=== PATIENT | female | born 1975 | race Caucasian/White ===

== ENCOUNTER → 2017-11-08 | Outpatient (CLI) | payer SELFPAY ==
--- NOTE | 2017-11-08 16:58 | RADIOLOGY REPORT (SQ) ---
EXAM DESCRIPTION: CHEST PA/LATERAL COMPLETED DATE/TIME: 11/08/2017 3:31 pm REASON FOR STUDY: PLEURODYNIA COMPARISON: 05/12/2016. EXAM PARAMETERS: NUMBER OF VIEWS: two views TECHNIQUE: Digital Frontal and Lateral radiographic views of the chest acquired. RADIATION DOSE: NA LIMITATIONS: none FINDINGS: LUNGS AND PLEURA: No opacities, masses or pneumothorax. No pleural effusion. MEDIASTINUM AND HILAR STRUCTURES: No masses or contour abnormalities. HEART AND VASCULAR STRUCTURES: Heart normal size. No evidence for failure. BONES: No acute findings. HARDWARE: None in the chest. OTHER: No other significant finding. IMPRESSION: NO SIGNIFICANT RADIOGRAPHIC FINDING IN THE CHEST. TECHNICAL DOCUMENTATION: JOB ID: [id number] [employer]- All Rights Reserved
== END ==
LOC: OD 15:10
PROVIDERS: ATTEND Family Medicine
DX: R07.81 Pleurodynia (principal)
CPT/HCPCS: 71046

== ENCOUNTER 2017-11-13 17:37 | Emergency (ER) | payer SELFPAY ==
[2017-11-13] MEDS ORDERED: ASPIRIN 81 MG TABLET, CHEWABLE PO ONE (19:44)
--- NOTE | 2017-11-13 19:47 | ER Document Report ---
ED Medical Screen (RME) - General Chief Complaint: Shortness Of Breath Stated Complaint: SHORTNESS OF BREATH,WEAKNESS Time Seen by Provider: 11/13/17 19:44 Mode of Arrival: Ambulatory Information source: Patient Notes: Patient presents complaining of left-sided chest pain and left upper back pain for the past week. Patient reports she has had shortness of breath off and on that is persisted today. Patient states shortness of breath is worse with exertion. Patient reports cough off and on over the past several months. Patient denies any fever. Patient additionally reports bilateral flank pain that started today. Patient states that she did see her primary doctor and had an x-ray performed last week but does not know the results of that. hx: Anxiety, hypertension, migraines, fibromyalgia, partial hysterectomy, cholecystectomy I have greeted and performed a rapid initial assessment of this patient. A comprehensive ED assessment and evaluation of the patient, analysis of test results and completion of the medical decision making process will be conducted by additional ED providers. TRAVEL OUTSIDE OF THE [place] IN LAST 30 DAYS: No - Related Data Allergies/Adverse Reactions: lisinopril [Lisinopril] Allergy (Verified 11/13/17 17:39) ondansetron [From ZOFRAN ODT] Allergy (Verified 11/13/17 17:39) promethazine HCl [From Phenergan] Allergy (Verified 11/13/17 17:39) Past Medical History - Past Medical History Cardiac Medical History: Reports: Hx Hypertension - Not on medication Denies: Hx Coronary Artery Disease, Hx Heart Attack Pulmonary Medical History: Denies: Hx Asthma, Hx Bronchitis, Hx COPD, Hx Pneumonia Neurological Medical History: Denies: Hx Cerebrovascular Accident, Hx Seizures GI Medical History: Reports: Hx Gastroesophageal Reflux Disease Musculoskeltal Medical History: Denies Hx Arthritis, Reports Hx Fibromyalgia Psychiatric Medical History: Reports: Hx Anxiety, Hx Attention Deficit Hyperactivity Disorder, Hx Depression Past Surgical History: Reports: Hx Cholecystectomy - 1992, Hx Hysterectomy - 2010 - Immunizations Hx Diphtheria, Pertussis, Tetanus Vaccination: Yes Physical Exam - Vital signs Vitals: Temp Pulse Resp BP Pulse Ox 98.2 F 70 18 173/99 H 99 11/13/17 17:47 11/13/17 17:47 11/13/17 17:47 11/13/17 17:47 11/13/17 17:47 - Cardiovascular Rhythm: Regular Heart sounds: S1 appreciated, S2 appreciated Murmur: No - Back Back: CVA tenderness - Bilateral Course - Vital Signs Vital signs: Temp Pulse Resp BP Pulse Ox 98.2 F 70 18 173/99 H 99 11/13/17 17:47 11/13/17 17:47 11/13/17 17:47 11/13/17 17:47 11/13/17 17:47
[2017-11-13 20:27] LABS: ABSOLUTE BASOPHILS # (AUTO) 0.1 10^3/uL (0.0-0.2); ABSOLUTE LYMPHOCYTES (AUTO) 3.9 10^3/uL (0.5-4.7); ABSOLUTE MONOCYTES (AUTO) 0.7 10^3/uL (0.1-1.4); ABSOLUTE NEUT (AUTO) 7.1 10^3/uL (1.7-8.2); BASOPHILS % (AUTO) 0.7 % (0-2); EOSINOPHILS % (AUTO) 0.2 % (0-6); HEMOGLOBIN 12.8 g/dL (12.0-15.5); LYMPHOCYTES % (AUTO) 33.1 % (13-45); MEAN CORPUSCULAR HEMOGLOBIN 29.6 pg (27.0-33.4); MEAN CORPUSCULAR HGB CONC 33.7 g/dL (32.0-36.0); MEAN CORPUSCULAR VOLUME 88 fl (80-97); MONOCYTES % (AUTO) 5.9 % (3-13); PLATELET COUNT 348 10^3/uL (150-450); RED BLOOD COUNT 4.33 10^6/uL (3.72-5.28); RED CELL DISTRIBUTION WIDTH 13.9 % (11.5-14.0); SEGMENTED NEUTROPHILS % (AUTO) 60.1 % (42-78); TOTAL CELLS COUNTED % (AUTO) 100 %; WHITE BLOOD COUNT 11.8 10^3/uL (4.0-10.5)
--- NOTE | 2017-11-13 20:40 | RADIOLOGY REPORT (SQ) ---
EXAM DESCRIPTION: CHEST PA/LAT COMPLETED DATE/TIME: 11/13/2017 8:15 pm REASON FOR STUDY: cp, cough COMPARISON: 2015 TECHNIQUE: Frontal and lateral radiographic views of the chest acquired. NUMBER OF VIEWS: Two view. LIMITATIONS: None. FINDINGS: LUNGS AND PLEURA: No opacities, masses or pneumothorax. No pleural effusion. MEDIASTINUM AND HILAR STRUCTURES: No masses or contour abnormalities. HEART AND VASCULAR STRUCTURES: Heart normal size. No evidence for failure. BONES: No acute findings. HARDWARE: None in the chest. OTHER: No other significant finding. IMPRESSION: NO SIGNIFICANT RADIOGRAPHIC FINDING IN THE CHEST. TECHNICAL DOCUMENTATION: JOB ID: [id number] [employer]- All Rights Reserved
[2017-11-13 20:55] LABS: APPEARANCE,URINE SLIGHTLY-CLOUDY; BILIRUBIN,URINE NEGATIVE (NEGATIVE); COLOR,URINE YELLOW; GLUCOSE, URINE NEGATIVE (NEGATIVE); KETONES,URINE NEGATIVE (NEGATIVE); LEUKOCYTE ESTERASE,URINE NEGATIVE (NEGATIVE); NITRITE,URINE NEGATIVE (NEGATIVE); PROTEIN,URINE NEGATIVE (NEGATIVE); URINE SPECIFIC GRAVITY 1.018; UROBILINOGEN,URINE NEGATIVE mg/dL (<2.0)
[2017-11-13 21:19] LABS: ALANINE AMINOTRANSFERASE 39 U/L (9-52); ALBUMIN 4.9 g/dL (3.5-5.0); ALKALINE PHOSPHATASE 70 U/L (38-126); ANION GAP 10 (5-19); ASPARTATE AMINO TRANSFERASE 23 U/L (14-36); BILIRUBIN,DIRECT 0.4 mg/dL (0.0-0.4); BILIRUBIN,TOTAL 0.4 mg/dL (0.2-1.3); BLOOD UREA NITROGEN 15 mg/dL (7-20); CALCIUM 10.3 mg/dL (8.4-10.2); CARBON DIOXIDE 29 mmol/L (22-30); CHLORIDE 102 mmol/L (98-107); CREATINE KINASE 57 U/L (30-135); GLUCOSE 89 mg/dL (75-110); LIPASE 57.1 U/L (23-300); SODIUM 140.9 mmol/L (137-145); TOTAL PROTEIN 8.1 g/dL (6.3-8.2)
[2017-11-13 21:31] LABS: CREATINE KINASE MB 0.25 ng/mL (<4.55)
[2017-11-13 21:34] LABS: TROPONIN I < 0.012 ng/mL
[2017-11-13] MEDS ORDERED: LIDOCAINE 5% (700 MG) TRANSDERMAL ADH..PATCH TP ONE (22:26)
--- NOTE | 2017-11-13 22:27 | ER Document Report ---
ED General - General Chief Complaint: Shortness Of Breath Stated Complaint: SHORTNESS OF BREATH,WEAKNESS Time Seen by Provider: 11/13/17 19:44 Mode of Arrival: Ambulatory Notes: Patient is a 42-year-old female who presents with approximately 5-6 days of left -sided periscapular and chest wall pain. Patient states that this is a dull, aching, constant pain worsened by moving, breathing or coughing. She saw her primary care doctor for this concern, was diagnosed with musculoskeletal irritation and treated with Vicodin, prednisone and muscle relaxers without any relief. She denies history of similar symptoms in the past. She notes that sometimes the pain prevents her from getting a deep breath. She denies any baseline shortness of breath, syncope, hemoptysis, unilateral leg swelling or use of estrogen. No history of DVT or pulmonary embolus. TRAVEL OUTSIDE OF THE [place] IN LAST 30 DAYS: No - Related Data Allergies/Adverse Reactions: lisinopril [Lisinopril] Allergy (Verified 11/13/17 17:39) ondansetron [From ZOFRAN ODT] Allergy (Verified 11/13/17 17:39) promethazine HCl [From Phenergan] Allergy (Verified 11/13/17 17:39) Past Medical History - General Information source: Patient - Social History Smoking Status: Never Smoker Chew tobacco use (# tins/day): No Frequency of alcohol use: Occasional Drug Abuse: None Lives with: Spouse/Significant other Family History: CAD, Hyperlipidemia, Hypertension Patient has suicidal ideation: No Patient has homicidal ideation: No - Past Medical History Cardiac Medical History: Reports: Hx Hypertension - Not on medication Denies: Hx Coronary Artery Disease, Hx Heart Attack Pulmonary Medical History: Denies: Hx Asthma, Hx Bronchitis, Hx COPD, Hx Pneumonia Neurological Medical History: Denies: Hx Cerebrovascular Accident, Hx Seizures Renal/ Medical History: Denies: Hx Peritoneal Dialysis GI Medical History: Reports: Hx Gastroesophageal Reflux Disease Musculoskeltal Medical History: Denies Hx Arthritis, Reports Hx Fibromyalgia Psychiatric Medical History: Reports: Hx Anxiety, Hx Attention Deficit Hyperactivity Disorder, Hx Depression Past Surgical History: Reports: Hx Cholecystectomy - 1992, Hx Hysterectomy - 2010 - Immunizations Hx Diphtheria, Pertussis, Tetanus Vaccination: Yes Review of Systems - Review of Systems Notes: Constitutional: Negative for fever. HENT: Negative for sore throat. Eyes: Negative for visual changes. Cardiovascular: Negative for chest pain. Respiratory: Negative for shortness of breath. Gastrointestinal: Negative for abdominal pain, vomiting or diarrhea. Genitourinary: Negative for dysuria. Musculoskeletal: Positive for left-sided chest wall and periscapular pain. Skin: Negative for rash. Neurological: Negative for headaches, weakness or numbness. 10 point ROS negative except as marked above and in HPI. Physical Exam - Vital signs Vitals: Temp Pulse Resp BP Pulse Ox 98.2 F 70 18 173/99 H 99 11/13/17 17:47 11/13/17 17:47 11/13/17 17:47 11/13/17 17:47 11/13/17 17:47 Interpretation: Hypertensive Notes: PHYSICAL EXAMINATION: GENERAL: Well-appearing, well-nourished and in no acute distress. HEAD: Atraumatic, normocephalic. EYES: Pupils equal round and reactive to light, extraocular movements intact, sclera anicteric, conjunctiva are normal. ENT: nares patent, oropharynx clear without exudates. Moist mucous membranes. NECK: Normal range of motion, supple without lymphadenopathy LUNGS: Breath sounds clear to auscultation bilaterally and equal. No wheezes rales or rhonchi. HEART: Regular rate and rhythm without murmurs chest wall: Pain on palpation of the left periscapular and intercostal muscles. ABDOMEN: Soft, nontender, normoactive bowel sounds. No guarding, no rebound. No masses appreciated. EXTREMITIES: Normal range of motion, no pitting or edema. No cyanosis. NEUROLOGICAL: No focal neurological deficits. Moves all extremities spontaneously and on command. PSYCH: Normal mood, normal affect. SKIN: Warm, Dry, normal turgor, no rashes or lesions noted. Course - Re-evaluation Re-evalutation: 11/13/17 22:23 Patient presents with 2 weeks of a pain around her left periscapular region and lower ribs worsened by movement and breathing. She states that a deep breath occasionally makes it feel she cannot breathe due to the level of pain. Denies any history of similar symptoms in the past. She denies any hemoptysis, tachycardia, syncope, unilateral leg swelling, history of DVT or pulmonary embolus, any use of supplemental estrogen, or history of malignancy. She is PERC criteria negative. Her pain is reproducible on exam as well as with movement of the chest wall and I strongly suspect a musculoskeletal component as opposed to pulmonary embolus. Chest x-ray is clear without any evidence of a pneumothorax or widened mediastinum. Clinical history is not consistent with aortic dissection. EKG unremarkable without any ischemic changes and again her clinical history is not consistent with a cardiac origin of her presentation today. At this time will discharge with return precautions and follow-up recommendations. Verbal discharge instructions given a the bedside and opportunity for questions given. Medication warnings reviewed. Patient is in agreement with this plan and has verbalized understanding of return precautions and the need for primary care follow-up in the next 24-72 hours. - Vital Signs Vital signs: Temp Pulse Resp BP Pulse Ox 97.3 F 70 16 148/93 H 100 11/13/17 22:35 11/13/17 17:47 11/13/17 22:35 11/13/17 22:35 11/13/17 22:35 - Laboratory Result Diagrams: 11/13/17 20:15 11/13/17 20:15 Laboratory results interpreted by me: 11/13/17 11/13/17 20:15 20:15 WBC 11.8 H Calcium 10.3 H - Diagnostic Test Radiology reviewed: Image reviewed, Reports reviewed Radiology results interpreted by me: 11/13/17 22:25 Chest x-ray: No acute infiltrate or pneumothorax - EKG Interpretation by Me Additional EKG results interpreted by me: 11/13/17 22:25 Sinus bradycardia. Rate 56. No ST elevations or depressions. QTC is 448. Discharge - Discharge Clinical Impression: Chest discomfort, Periscapular pain, Pleurodynia Condition: Good Disposition: HOME, SELF-CARE Additional Instructions: Your symptoms appear to be most consistent with musculoskeletal irritation of your chest wall. This pain can last for up to 6 weeks. It is very important that you continue to take purposeful deep breaths. For your pain: Continue to take ibuprofen 600 mg every 6 hours or Tylenol 1000 mg every 6 hours. Apply local lidocaine to the area per bottle instructions. There is a product sold [id number] called "Aspercreme with lidocaine" that you can use for this purpose. Please follow-up with her primary care doctor in the next 2-3 days. Return to the emergency department immediately if you develop worsening shortness of breath, increased pain, begin coughing blood, pass out, or have any other symptoms that are worrisome to you. Referrals: JEREMIAH DUARTE, DO [Primary Care Provider] - Follow up as needed
[2017-11-13 22:38] VITALS: BP 148/93
--- NOTE | 2017-11-14 08:12 | EKG REPORT ---
SEVERITY:- NORMAL ECG - SINUS RHYTHM : Confirmed by: Jonathan Sidhu MD 14-Nov-2017 08:11:38
== END 2017-11-13 22:35 | disposition home or self-care (01) ==
LOC: ER 17:37
DX: R07.81 Pleurodynia (principal); R07.89 Other chest pain; R06.02 Shortness of breath; Z90.49 Acquired absence of other specified parts of digestive tract; Z90.710 Acquired absence of both cervix and uterus
CPT/HCPCS: 36415; 71046; 80053; 81001; 82550; 82553; 83690; 84484; 85025; 93005; 93010; 99285

== ENCOUNTER 2018-11-06 19:36 | Emergency (ER) | payer SELFPAY ==
--- NOTE | 2018-11-06 20:57 | ER Document Report ---
ED Medical Screen (RME) - General Chief Complaint: Chest Pain Stated Complaint: CHEST PAIN Time Seen by Provider: 11/06/18 20:34 Primary Care Provider: JEREMIAH DUARTE DO [Primary Care Provider] - Follow up as needed Notes: 43-year-old female patient complained of headache for the past 10 days that is worse today. Today she noticed some pain in the left ear going into the left jaw with associated left-sided chest pain. The chest pain seems to be made worse with taking a deep breath. She feels some of the headache and facial pain is sinus related. She also noted that her blood pressure was increased today. She does take propranolol 60 mg daily for blood pressure. She was started on phentermine hydrochloride on 10/19/2018, but states she stopped it 2 weeks ago because it was making her blood pressure go high. She was in urgent care today and while there took 1 of her 3 times daily Ativan but that did not help her chest pain go away. They recommended she come to the emergency room for further evaluation. I have greeted and performed a rapid initial assessment of this patient. A comprehensive ED assessment and evaluation of the patient, analysis of test results and completion of the medical decision making process will be conducted by additional ED providers. TRAVEL OUTSIDE OF THE [place] IN LAST 30 DAYS: No - Related Data Allergies/Adverse Reactions: lisinopril [Lisinopril] Allergy (Verified 11/06/18 20:39) ondansetron [From ZOFRAN ODT] Allergy (Verified 11/06/18 20:39) promethazine HCl [From Phenergan] Allergy (Verified 11/06/18 20:39) Past Medical History - Past Medical History Cardiac Medical History: Reports: Hx Hypertension Denies: Hx Coronary Artery Disease, Hx Heart Attack Pulmonary Medical History: Denies: Hx Asthma, Hx Bronchitis, Hx COPD, Hx Pneumonia Neurological Medical History: Denies: Hx Cerebrovascular Accident, Hx Seizures Renal/ Medical History: Denies: Hx Peritoneal Dialysis GI Medical History: Reports: Hx Gastroesophageal Reflux Disease, Hx Hiatal Hernia Musculoskeltal Medical History: Denies Hx Arthritis, Reports Hx Fibromyalgia Psychiatric Medical History: Reports: Hx Anxiety, Hx Attention Deficit Hyperactivity Disorder, Hx Depression - panic d/c, anxiety Past Surgical History: Reports: Hx Cholecystectomy, Hx Gynecologic Surgery, Hx Hysterectomy - Immunizations Hx Diphtheria, Pertussis, Tetanus Vaccination: Yes Physical Exam - Vital signs Vitals: Temp Pulse Resp BP Pulse Ox 98.2 F 76 20 154/88 H 100 11/06/18 19:59 11/06/18 19:59 11/06/18 19:59 11/06/18 19:59 11/06/18 19:59 Course - Vital Signs Vital signs: Temp Pulse Resp BP Pulse Ox 98.2 F 76 20 154/88 H 100 11/06/18 19:59 11/06/18 19:59 11/06/18 19:59 11/06/18 19:59 11/06/18 19:59 Doctor's Discharge - Discharge Referrals: JEREMIAH DUARTE DO [Primary Care Provider] - Follow up as needed
[2018-11-06 21:21] LABS: ABSOLUTE EOSINOPHILS # (AUTO) 0.1 10^3/uL (0.0-0.6); ABSOLUTE LYMPHOCYTES (AUTO) 2.5 10^3/uL (0.5-4.7); ABSOLUTE MONOCYTES (AUTO) 0.5 10^3/uL (0.1-1.4); ABSOLUTE NEUT (AUTO) 4.9 10^3/uL (1.7-8.2); BASOPHILS % (AUTO) 0.6 % (0-2); EOSINOPHILS % (AUTO) 0.7 % (0-6); HEMATOCRIT 39.9 % (36.0-47.0); HEMOGLOBIN 13.2 g/dL (12.0-15.5); LYMPHOCYTES % (AUTO) 31.1 % (13-45); MEAN CORPUSCULAR HEMOGLOBIN 29.5 pg (27.0-33.4); MEAN CORPUSCULAR VOLUME 90 fl (80-97); MONOCYTES % (AUTO) 6.2 % (3-13); PLATELET COUNT 317 10^3/uL (150-450); RED BLOOD COUNT 4.45 10^6/uL (3.72-5.28); SEGMENTED NEUTROPHILS % (AUTO) 61.4 % (42-78); TOTAL CELLS COUNTED % (AUTO) 100 %
[2018-11-06 21:24] LABS: APPEARANCE,URINE SLIGHTLY-CLOUDY; BILIRUBIN,URINE NEGATIVE (NEGATIVE); COLOR,URINE YELLOW; GLUCOSE, URINE NEGATIVE (NEGATIVE); KETONES,URINE NEGATIVE (NEGATIVE); LEUKOCYTE ESTERASE,URINE NEGATIVE (NEGATIVE); NITRITE,URINE NEGATIVE (NEGATIVE); PROTEIN,URINE NEGATIVE (NEGATIVE); URINE SPECIFIC GRAVITY 1.023; UROBILINOGEN,URINE NEGATIVE mg/dL (<2.0)
--- NOTE | 2018-11-06 21:33 | RADIOLOGY REPORT (SQ) ---
EXAM DESCRIPTION: XR CHEST 2 VIEWS COMPLETED DATE/TME: 11/06/2018 20:55 CLINICAL HISTORY: 43 years, Female, Chest pain COMPARISON: 11/13/2017 chest NUMBER OF VIEWS: 2 TECHNIQUE: Frontal and lateral views of the chest LIMITATIONS: None. FINDINGS: Heart size normal. Lungs are clear. No pneumothorax IMPRESSION: Negative chest copyright 2010 [employer]- All Rights Reserved
[2018-11-06 21:34] LABS: ALANINE AMINOTRANSFERASE 27 U/L (9-52); ALBUMIN 4.8 g/dL (3.5-5.0); ALKALINE PHOSPHATASE 79 U/L (38-126); ANION GAP 7 (5-19); ASPARTATE AMINO TRANSFERASE 22 U/L (14-36); BILIRUBIN,DIRECT 0.1 mg/dL (0.0-0.4); BILIRUBIN,TOTAL 0.3 mg/dL (0.2-1.3); BLOOD UREA NITROGEN 11 mg/dL (7-20); CALCIUM 9.5 mg/dL (8.4-10.2); CARBON DIOXIDE 29 mmol/L (22-30); CHLORIDE 103 mmol/L (98-107); CREATINE KINASE 83 U/L (30-135); GLUCOSE 121 mg/dL (75-110); POTASSIUM 3.9 mmol/L (3.6-5.0); SODIUM 139.1 mmol/L (137-145); TOTAL PROTEIN 7.6 g/dL (6.3-8.2)
[2018-11-06 21:47] LABS: TROPONIN I < 0.012 ng/mL
--- NOTE | 2018-11-06 22:16 | ER Document Report ---
ED Cardiac - General Chief Complaint: Chest Pain Stated Complaint: CHEST PAIN Time Seen by Provider: 11/06/18 22:16 Primary Care Provider: JEREMIAH DUARTE DO [Primary Care Provider] - Follow up as needed Information source: Patient Notes: Patient is a 43-year-old female with a past medical history of anxiety, GERD, and costochondritis who presents with left-sided headache as well as sharp left- sided chest pain. Patient denies recent fevers or chills, no vision changes, no confusion or disorientation, no shortness of breath, no inability walking, no head injuries. Patient does describe pain as sharp in sensation and consistent with known history of costochondritis. Onset: 3-4 hours prior to arrival Provocation: None Quality: Sharp, throbbing Radiation: None Severity: Moderate Timing: Constant TRAVEL OUTSIDE OF THE [place] IN LAST 30 DAYS: No - HPI Similar symptoms previously: Yes Recently seen / treated by doctor: No - Related Data Allergies/Adverse Reactions: lisinopril [Lisinopril] Allergy (Verified 11/06/18 20:39) ondansetron [From ZOFRAN ODT] Allergy (Verified 11/06/18 20:39) promethazine HCl [From Phenergan] Allergy (Verified 11/06/18 20:39) Past Medical History - General Information source: Patient - Social History Smoking Status: Never Smoker Chew tobacco use (# tins/day): No Frequency of alcohol use: None Drug Abuse: None Lives with: Friend Family History: CAD, Hyperlipidemia, Hypertension Patient has suicidal ideation: No Patient has homicidal ideation: No - Past Medical History Cardiac Medical History: Reports: Hx Hypertension Denies: Hx Coronary Artery Disease, Hx Heart Attack Pulmonary Medical History: Reports: None Denies: Hx Asthma, Hx Bronchitis, Hx COPD, Hx Pneumonia EENT Medical History: Reports: None Neurological Medical History: Reports: None. Denies: Hx Cerebrovascular Accident, Hx Seizures Endocrine Medical History: Reports: None Renal/ Medical History: Reports: None. Denies: Hx Peritoneal Dialysis Malignancy Medical History: Reports: None GI Medical History: Reports: Hx Gastroesophageal Reflux Disease, Hx Hiatal Hernia Musculoskeletal Medical History: Denies Hx Arthritis, Reports Hx Fibromyalgia Skin Medical History: Reports None Psychiatric Medical History: Reports: Hx Anxiety, Hx Attention Deficit Hyperactivity Disorder, Hx Depression - panic d/c, anxiety Traumatic Medical History: Reports: None Infectious Medical History: Reports: None Past Surgical History: Reports: Hx Cholecystectomy, Hx Gynecologic Surgery, Hx Hysterectomy - Immunizations Immunizations up to date: Yes Hx Diphtheria, Pertussis, Tetanus Vaccination: Yes Review of Systems - Review of Systems Notes: REVIEW OF SYSTEMS: CONSTITUTIONAL : Denies fever, chills, or sweats. Denies recent illness. EENT: Denies eye, ear, throat, or mouth pain or symptoms. Denies nasal or sinus congestion. CARDIOVASCULAR: Positive sharp chest pain. RESPIRATORY: Denies cough, cold, or chest congestion. Denies shortness of breath, difficulty breathing, or wheezing. GASTROINTESTINAL: Denies abdominal pain. Denies nausea, vomiting, or diarrhea. Denies constipation. Last BM: GENITOURINARY: Denies difficulty urinating, painful urination, burning, frequency, or blood in urine. FEMALE GENITOURINARY: Denies vaginal bleeding, abnormal or irregular periods. MUSCULOSKELETAL: Denies neck or back pain or joint pain or swelling. SKIN: Denies rash or skin lesions. HEMATOLOGIC : Denies easy bruising or bleeding. LYMPHATIC: Denies swollen, enlarged glands. NEUROLOGICAL: Denies altered mental status or loss of consciousness. Positive headache. Denies weakness or paralysis or loss of use of either side. Denies problems with gait or speech. Denies sensory or motor loss. PSYCHIATRIC: Denies anxiety or stress or depression. ALL OTHER SYSTEMS REVIEWED AND NEGATIVE. -: Yes All other systems reviewed and negative Physical Exam - Vital signs Vitals: Temp Pulse Resp BP Pulse Ox 98.2 F 76 20 154/88 H 100 11/06/18 19:59 11/06/18 19:59 11/06/18 19:59 11/06/18 19:59 11/06/18 19:59 - Notes Notes: PHYSICAL EXAMINATION: GENERAL: Well-appearing, well-nourished and in no acute distress. HEAD: Atraumatic, normocephalic. EYES: Pupils equal round and reactive to light, extraocular movements intact, sclera anicteric, conjunctiva are normal. ENT: nares patent, oropharynx clear without exudates. Moist mucous membranes. NECK: Normal range of motion, supple without lymphadenopathy LUNGS: Breath sounds clear to auscultation bilaterally and equal. No wheezes rales or rhonchi. HEART: Regular rate and rhythm without murmurs ABDOMEN: Soft, nontender, normoactive bowel sounds. No guarding, no rebound. No masses appreciated. Genital and rectal exam deferred. EXTREMITIES: Normal range of motion, no pitting or edema. No cyanosis. NEUROLOGICAL: No focal neurological deficits. Moves all extremities spontaneously and on command. PSYCH: Normal mood, normal affect. SKIN: Warm, Dry, normal turgor, no rashes or lesions noted. Course - Re-evaluation Re-evalutation: 11/07/18 01:12 Etiology clearly is noncardiac given complaint and negative history of concerning risk factors. Chest x-ray as well as blood work is normal. After Toradol and Reglan, patient reports near complete resolution of both chest pain and her headache. She will be discharged home with return precautions and follow-up. Both the patient and her boyfriend at bedside voiced understanding and agreeing with the plan. - Vital Signs Vital signs: Temp Pulse Resp BP Pulse Ox 98.2 F 76 20 154/88 H 100 11/06/18 19:59 11/06/18 19:59 11/06/18 19:59 11/06/18 19:59 11/06/18 19:59 - Laboratory Result Diagrams: 11/06/18 21:06 11/06/18 21:06 Laboratory results interpreted by me: 11/06/18 21:06 Glucose 121 H - Diagnostic Test Radiology reviewed: Image reviewed, Reports reviewed - EKG Interpretation by Ks EKG shows normal: Sinus rhythm Rate: Normal Rhythm: NSR [place]/QRS: No: Right axis deviation, Left axis deviation, RBBB, LBBB, IVCD, LAHB/LAFB, LPHB/LPFB, Bifasicular block Voltage: No: Increased voltage, Consistant with LVH, Decreased voltage, Throughout, Limb leads Heart block present: No: 1st Degree, Mobitz 1, Mobitz 2, CHB (3rd degree block) When compared to previous EKG there are: No significant change Discharge - Discharge Clinical Impression: Non-cardiac chest pain Migraine headache Qualifiers: Migraine type: unspecified Status migrainosus presence: without status migrainosus Intractability: not intractable Qualified Code(s): G43.909 - Migr hakan, unspecified, not intractable, without status migrainosus Condition: Good Disposition: HOME, SELF-CARE Instructions: Chest Wall Pain ([facility]) Additional Instructions: You have been evaluated in the Emergency Department for both chest pain and a headache. Please follow-up with your primary physician as instructed in 1 week. Return to the Emergency Department if you experience vision changes, trouble breathing, disorientation, trouble walking, or any other concerning symptoms. Prescriptions: Butalbital/Aspirin/Caffeine [[id number] 50-325-40] 1 each PO Q6H PRN #30 tablet PRN Reason: For Headache Referrals: JEREMIAH DUARTE DO [Primary Care Provider] - Follow up as needed Print Language: Greenlandic
[2018-11-06] MEDS ORDERED: KETOROLAC TROMETHAMINE INJ/PF 30 MG/1 ML SDV IV ONE (23:06)
[2018-11-06] MEDS ORDERED: METOCLOPRAMIDE HCL INJ/PF 10 MG/2 ML SDV IV ONE (23:06)
[2018-11-07 01:40] VITALS: BP 131/72
--- NOTE | 2018-11-07 08:01 | EKG REPORT ---
SEVERITY:- ABNORMAL ECG - SINUS RHYTHM NONSPECIFIC INTRAVENTRICULAR CONDUCTION DELAY : Confirmed by: Jaqui Alford MD 07-Nov-2018 08:00:41
== END 2018-11-07 01:39 | disposition home or self-care (01) ==
LOC: ER 19:36
DX: R07.89 Other chest pain (principal); G43.909 Migraine, unspecified, not intractable, without status migrainosus; I10 Essential (primary) hypertension; Z88.8 Allergy status to other drugs, medicaments and biological substances; Z82.49 Family history of ischemic heart disease and other diseases of the circulatory system
CPT/HCPCS: 93005; 99285; 96374; 96375; 36415; 82553; 82550; 85025; 80053; 81001; 84484; 71046; 93010; J1885; J2765

== ENCOUNTER 2019-06-27 16:22 | Emergency (ER) | payer SELFPAY ==
[2019-06-27 16:55] VITALS: BP 171/107
--- NOTE | 2019-06-27 17:36 | ER Document Report ---
ED Medical Screen (RME) - General Chief Complaint: Hip Pain Stated Complaint: HIP PAIN Time Seen by Provider: 06/27/19 17:31 Primary Care Provider: JEREMIAH FERGUSON DO [Primary Care Provider] - Follow up as needed Mode of Arrival: Ambulatory Information source: Patient Notes: 43-year-old female presented to ED for complaint of pain to the upper left thigh for about 2 months. She states 2 weeks ago she [place] in her left calf buttock thigh and knee were painful and very tight and spasming. She states she is also feeling a lot of pressure in her groin area. She denies smoking she denies any history of DVT. She states she has a history of fibromyalgia high blood pressure depression migraines and anxiety. She has had a partial hysterectomy bladder InterStim and her gallbladder removed. She states she drinks wine about once a week she states she might smoke a cigarette every to 3 months. She states she is her primary care Dr. Ferguson yesterday he started on prednisone muscle relaxers and Vicodin and told her if it was not better by next week to come back and he would order labs and x-rays. She states the pain got worse today. I have greeted and performed a rapid initial assessment of this patient. A comprehensive ED assessment and evaluation of the patient, analysis of test results and completion of medical decision making process will be conducted by an additional ED providers. TRAVEL OUTSIDE OF THE [place] IN LAST 30 DAYS: No - Related Data Allergies/Adverse Reactions: lisinopril [Lisinopril] Allergy (Verified 06/27/19 16:23) ondansetron [From ZOFRAN ODT] Allergy (Verified 06/27/19 16:23) promethazine HCl [From Phenergan] Allergy (Verified 06/27/19 16:23) Past Medical History - Past Medical History Cardiac Medical History: Reports: Hx Hypertension Denies: Hx Coronary Artery Disease, Hx Heart Attack Pulmonary Medical History: Denies: Hx Asthma, Hx Bronchitis, Hx COPD, Hx Pneumonia Neurological Medical History: Denies: Hx Cerebrovascular Accident, Hx Seizures Renal/ Medical History: Denies: Hx Peritoneal Dialysis GI Medical History: Reports: Hx Gastroesophageal Reflux Disease, Hx Hiatal Hernia Musculoskeltal Medical History: Denies Hx Arthritis, Reports Hx Fibromyalgia Psychiatric Medical History: Reports: Hx Anxiety, Hx Attention Deficit Hyperactivity Disorder, Hx Depression - panic d/c, anxiety Past Surgical History: Reports: Hx Cholecystectomy, Hx Gynecologic Surgery, Hx Hysterectomy - Immunizations Immunizations up to date: Yes Hx Diphtheria, Pertussis, Tetanus Vaccination: Yes Physical Exam - Vital signs Vitals: Temp Pulse Resp BP Pulse Ox 98.3 F 108 H 20 171/107 H 98 06/27/19 16:53 06/27/19 16:53 06/27/19 16:53 06/27/19 16:53 06/27/19 16:53 Course - Vital Signs Vital signs: Temp Pulse Resp BP Pulse Ox 98.3 F 108 H 20 171/107 H 98 06/27/19 16:53 06/27/19 16:53 06/27/19 16:53 06/27/19 16:53 06/27/19 16:53 Doctor's Discharge - Discharge Referrals: JEREMIAH FERGUSON DO [Primary Care Provider] - Follow up as needed
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
[2019-06-27 20:01] LABS: ALBUMIN 4.7 g/dL (3.5-5.0); ALKALINE PHOSPHATASE 80 U/L (38-126); ANION GAP 12 (5-19); ASPARTATE AMINO TRANSFERASE 31 U/L (14-36); BILIRUBIN,DIRECT 0.1 mg/dL (0.0-0.4); BILIRUBIN,TOTAL 0.2 mg/dL (0.2-1.3); BLOOD UREA NITROGEN 17 mg/dL (7-20); CALCIUM 9.5 mg/dL (8.4-10.2); CARBON DIOXIDE 23 mmol/L (22-30); CHLORIDE 102 mmol/L (98-107); GLUCOSE 141 mg/dL (75-110); TOTAL PROTEIN 7.5 g/dL (6.3-8.2)
[2019-06-27 20:05] LABS: ABSOLUTE BASOPHILS # (AUTO) 0.1 10^3/uL (0.0-0.2); ABSOLUTE LYMPHOCYTES (AUTO) 1.4 10^3/uL (0.5-4.7); ABSOLUTE MONOCYTES (AUTO) 0.6 10^3/uL (0.1-1.4); ABSOLUTE NEUT (AUTO) 9.7 10^3/uL (1.7-8.2); BASOPHILS % (AUTO) 0.5 % (0-2); HEMOGLOBIN 12.3 g/dL (12.0-15.5); MEAN CORPUSCULAR HEMOGLOBIN 29.6 pg (27.0-33.4); MEAN CORPUSCULAR HGB CONC 33.3 g/dL (32.0-36.0); MEAN CORPUSCULAR VOLUME 89 fl (80-97); MONOCYTES % (AUTO) 4.8 % (3-13); PLATELET COUNT 325 10^3/uL (150-450); RED BLOOD COUNT 4.17 10^6/uL (3.72-5.28); RED CELL DISTRIBUTION WIDTH 14.5 % (11.5-14.0); SEGMENTED NEUTROPHILS % (AUTO) 82.7 % (42-78); TOTAL CELLS COUNTED % (AUTO) 100 %; WHITE BLOOD COUNT 11.8 10^3/uL (4.0-10.5)
[2019-06-27 20:25] LABS: APPEARANCE,URINE CLEAR; BILIRUBIN,URINE NEGATIVE (NEGATIVE); COLOR,URINE YELLOW; GLUCOSE, URINE NEGATIVE (NEGATIVE); KETONES,URINE NEGATIVE (NEGATIVE); LEUKOCYTE ESTERASE,URINE NEGATIVE (NEGATIVE); NITRITE,URINE NEGATIVE (NEGATIVE); PROTEIN,URINE NEGATIVE (NEGATIVE); UROBILINOGEN,URINE NEGATIVE mg/dL (<2.0)
[2019-06-27 20:31] LABS: INTERNATIONAL RATION (INR) 0.92; PROTHROMBIN TIME 12.4 SEC (11.4-15.4)
[2019-06-27 20:32] LABS: PARTIAL THROMBOPLASTIN TIME 26.1 SEC (23.5-35.8)
--- NOTE | 2019-06-27 22:54 | ER Document Report ---
Doctor's Note Notes: 06/27/19 22:53 I signed up to see this patient. Her laboratory investigations were reviewed, I was awaiting Doppler. Evidently, the patient did not have the Doppler. Ultrasound was called out. I was notified by nursing after I went to evaluate the patient that she was evidently seen leaving the department. I did not e valuate this patient in any way.
== END 2019-06-27 22:15 | disposition left against medical advice (07) ==
LOC: ER 16:22
DX: M79.652 Pain in left thigh (principal); R25.2 Cramp and spasm; I10 Essential (primary) hypertension; Z88.8 Allergy status to other drugs, medicaments and biological substances; Z53.20 Procedure and treatment not carried out because of patient's decision for unspecified reasons
CPT/HCPCS: 36415; 71046; 80053; 81001; 85025; 85610; 85730; 99281

== ENCOUNTER 2019-08-05 13:40 | Emergency (ER) | payer BC ==
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
[2019-08-05 16:26] VITALS: BP 131/92
== END 2019-08-05 16:43 | disposition home or self-care (01) ==
LOC: ER 13:40
DX: S02.2XXA Fracture of nasal bones, initial encounter for closed fracture (principal); R51 Headache; J34.89 Other specified disorders of nose and nasal sinuses; Y04.0XXA Assault by unarmed brawl or fight, initial encounter; Z79.899 Other long term (current) drug therapy; I10 Essential (primary) hypertension
CPT/HCPCS: 70150; 99283

== ENCOUNTER → 2019-09-12 | Outpatient (CLI) | payer BC ==
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
== END ==
LOC: OD 08:33
PROVIDERS: ATTEND Family Medicine
DX: M54.42 Lumbago with sciatica, left side (principal)
CPT/HCPCS: 72110

== ENCOUNTER → 2020-02-14 | Outpatient (CLI) | payer BC ==
--- NOTE | 2020-02-14 10:13 | ER RDC ASSESSMENT REPORT ---
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 - Symptoms Subjective Fever([place] feverish): Yes Chills: Yes Muscule Aches: Yes Runny Nose: Yes Sore Throat: No Cough (New or worsening chronic cough): Yes Shortness of breath: Yes Nausea or Vomiting: No Headache: Yes Abdominal Pain: No Diarrhea(3 or more loose stools in last 24 hours): No - Do you have any of the following Chronic lung disease: Asthma or emphysema or COPD: No Cystic Fibrosis: No Diabetes: No High Blood Pressure: Yes Cardiovascular Disease: No Chronic Kidney Disease: No Chronic Liver Disease: No Chronic blood disorder like Sickle Cell Disease: No Weak immune system due to disease or medication: No Neurologic condition that limits movement: No Developmental delay - Moderate to Severe: No Recent (within past 2 weeks) or current : No Morbid Obesity (>100 pounds over ideal weight): No - Objective Temperature: 99.1 F Pulse Rate: 83 Respiratory Rate: 18 Blood Pressure: 174/90 - Hx of HTN- Did not take her BP Meds yesterday/today O2 Sat by Pulse Oximetry: 98 Objective: Patient is a well-appearing 44-year-old female who presents today for COVID-19 screening. Disposition: Home; Selfcare General - General Stated Complaint: Upper respiratory symptoms x3 days Mode of Arrival: Ambulatory Information source: Patient Notes: The patient was evaluated during the global COVID-19 pandemic. That diagnosis was suspected/considered upon initial presentation. Their evaluation, treatment, and testing was consistent with current guidelines for patients who present with complaints or symptoms that may be related to COVID-19. - HPI Patient complains to provider of: Upper respiratory symptoms Onset/Duration: Gradual Quality of pain: Achy Severity: Mild Pain Level: 2 Context: Generalized body aches. 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 Lives with: Family Family History: CAD, Hyperlipidemia, Hypertension Patient has suicidal ideation: No Patient has homicidal ideation: No - Past Medical History Cardiac Medical History: Reports: Hx Hypertension Denies: Hx Coronary Artery Disease, Hx Heart Attack Pulmonary Medical History: Denies: Hx Asthma, Hx Bronchitis, Hx COPD, Hx Pneumonia Neurological Medical History: Denies: Hx Cerebrovascular Accident, Hx Seizures Renal/ Medical History: Denies: Hx Peritoneal Dialysis GI Medical History: Reports: Hx Gastroesophageal Reflux Disease, Hx Hiatal Hernia Musculoskeletal Medical History: Denies Hx Arthritis, Reports Hx Fibromyalgia Psychiatric Medical History: Reports: Hx Anxiety, Hx Attention Deficit Hyperactivity Disorder, Hx Depression - panic d/c, anxiety Past Surgical History: Reports: Hx Cholecystectomy, Hx Gynecologic Surgery, Hx Hysterectomy Physical Exam - General In distress: None Notes: PHYSICAL EXAMINATION: GENERAL: Well-appearing and in no acute distress. HEAD: Atraumatic, normocephalic. EYES: sclera anicteric, conjunctiva are normal. ENT: nares patent. Moist mucous membranes. NECK: Normal range of motion, supple without lymphadenopathy. LUNGS: CTAB and equal. No wheezes rales or rhonchi. HEART: Regular rate and rhythm without murmurs. EXTREMITIES: Normal range of motion, no pitting edema. No cyanosis. BACK: No midline or CVA tenderness. NEUROLOGICAL: Cranial nerves grossly intact. Normal speech. PSYCH: Normal mood, normal affect. SKIN: Warm, Dry, normal color and turgor, no obvious lesions or rash noted. Diagnostic Results Laboratory Results: Patient advised at this time they are considered a Person Under Investigation (PUI) for the COVID-19 Coronavirus. They have been made aware it is currently taking 3-5 days to receive their results, and [facility] Department will call to advise them of their result, whether it is POSITIVE or NEGATIVE. Patient Education/Counseling Counseling/Education: Patient presents with upper respiratory symptoms worrisome for possible COVID- 19. Patient does not have symptoms worrisome as an emergency such as difficulty breathing, shortness of breath, chest pain, pressure, confusion or cyanosis. Patient appears suitable for discharge. Patient's vital signs are stable and patient is nontoxic in appearance. Good return precautions have been discussed with patient, patient verbalized understanding and is agreeable with discharge plan of care at this time. Patient provided COVID-19 discharge instructions to include: As a person under investigation for COVID-19, the [facility], division of public health advises you to adhere to the following guidance until your test results are reported to you. If your test result is positive, you will receive additional information from your provider and your local health department at that time. Remain at home until you are cleared by the health provider or public health authorities. Keep a log of visitors to your home, notify any visitors to your home of your isolation status. If you plan to move to a new address or leave the county, notify the local health department in your County. Call your doctor or seek care if you have an urgent medical need. Before seeking medical care, call ahead to get instructions from the provider before arriving at the medical office clinic or hospital. Notify them that you are being tested for the virus that causes COVID-19 so that arrangements can be made, as necessary, to prevent transmission to others in the healthcare setting. Next, notify the local health department in your county. If a medical emergency arises and you need to call 911, inform dispatch and the first responders that you are being tested for the virus that causes COVID-19. Next, notify the local health department in your county. Guidance for worsening S/SX: For worsening symptoms, patient has been advised to contact their Primary Care Provider, or go to the nearest Emergency Department. RDC Discharge - Discharge Clinical Impression: URI (upper respiratory infection) Qualifiers: URI type: unspecified URI Qualified Code(s): J06.9 - Acute upper respiratory infection, unspecified Condition: Stable Disposition: Home; Selfcare
[2020-02-14 10:36] VITALS: BP 174/90
== END ==
LOC: RDC 10:02
PROVIDERS: ATTEND Nurse Practitioner Family
DX: U07.1 COVID-19 (principal); J06.9 Acute upper respiratory infection, unspecified; R05 Cough; R06.02 Shortness of breath; J34.89 Other specified disorders of nose and nasal sinuses; R50.9 Fever, unspecified; R51 Headache; M79.10 Myalgia, unspecified site; I10 Essential (primary) hypertension; K21.9 Gastro-esophageal reflux disease without esophagitis; K44.9 Diaphragmatic hernia without obstruction or gangrene
CPT/HCPCS: 87635; 99211

== ENCOUNTER 2020-04-02 17:15 | Emergency (ER) | payer BC ==
[2020-04-02] MEDS ORDERED: ACETAMINOPHEN 325 MG TABLET PO ONE (18:12)
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
[2020-04-02 20:27] VITALS: BP 167/98
[2020-04-02] MEDS ORDERED: HYDROCODONE/ACETAMINOPHEN 5-325 MG (6 TAB/ER DISP) PO PRN (20:27)
== END 2020-04-02 20:37 | disposition home or self-care (01) ==
LOC: EEVIPCON 17:15 → ER 17:15
DX: S00.03XA Contusion of scalp, initial encounter (principal); Y00.XXXA Assault by blunt object, initial encounter; Y92.009 Unspecified place in unspecified non-institutional (private) residence as the place of occurrence of the external cause; I10 Essential (primary) hypertension; Z90.49 Acquired absence of other specified parts of digestive tract; Z90.710 Acquired absence of both cervix and uterus
CPT/HCPCS: 70450; 99284

== ENCOUNTER 2020-04-07 13:21 | Emergency (ER) | payer BC ==
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
[2020-04-07] MEDS ORDERED: KETOROLAC TROMETHAMINE 60 MG/2 ML SDV IM ONE (16:30)
[2020-04-07 17:02] VITALS: BP 148/74
== END 2020-04-07 17:01 | disposition home or self-care (01) ==
LOC: ER 13:21 → EEVIPCON 13:21 → ER 17:01
DX: S09.90XA Unspecified injury of head, initial encounter (principal); R51 Headache; R42 Dizziness and giddiness; W22.8XXA Striking against or struck by other objects, initial encounter; I10 Essential (primary) hypertension
CPT/HCPCS: 99284; 96372; 70450; 72125; J1885